=== PATIENT | male | born 1955 | race Caucasian/White ===

== ENCOUNTER 2017-12-07 05:54 | Day surgery (SDC) | payer BC ==
[2017-12-07] MEDS ORDERED: Midazolam 1 MG/ML 2 ML SDV IV ONE ×7 (05:55→07:41)
[2017-12-07] MEDS ORDERED: fentaNYL 100 MCG/2 ML SDV IV ONE ×3 (05:55→07:34)
[2017-12-07] MEDS ORDERED: Sodium Chloride 0.9% 10 ML Syringe FLUSH PRN (06:00)
[2017-12-07] MEDS ORDERED: Dextrose 5%-0.45% NaCl 1,000 ML IV SCH (06:00)
[2017-12-07] MEDS ORDERED: fentaNYL 100 MCG/2 ML SDV ONE (06:18)
[2017-12-07] MEDS ORDERED: Midazolam 1 MG/ML 2 ML SDV ONE (06:18)
[2017-12-07 10:44] VITALS: BP 106/72
--- NOTE | 2017-12-07 14:06 | OR ---
DATE: 12/07/2017 PROCEDURE: Total colonoscopy. INSTRUMENT USED: CF-H180AL Olympus video colonoscope. Olympus distal disposable attachment. PREMEDICATIONS: Fentanyl 100 mcg intravenous, Versed 4 mg intravenous. Nasal O2 cannula. INDICATION: The patient with rectal bleeding. Colonoscopic examination is done for detection of any polypoid lesions and removal, endoscopic hemostasis therapy if needed. DESCRIPTION OF PROCEDURE: Initial rectal exam showed external hemorrhoidal tags. Rigid anoscopy showed small internal hemorrhoids without bleeding from them. The colonoscope was passed with ease up to the ileocecal area, photographs were taken of the normal-appearing cecum identified by landmarks of appendiceal orifice and double-bulged ileocecal folds. No bleeding was noted from any of the visualized areas at the commencement of the examination. No stricture. No vascular ectasia. No large isolated ulcerations seen. No evidence of diffuse inflammatory bowel disease in the form of friability, contact bleeding, or ulcerations. No polyp or tumor mass identified. Probing the proximal sides of folds and flexures, using adequate distention and clearing of the stool material, withdrawal of the scope was made, cecum to rectum time over 6 minutes. No bleeding was noted from any of the visualized areas at the completion of examination. IMPRESSION: External hemorrhoids. The patient tolerated the procedure well. [facility] /[id number]
== END 2017-12-07 09:30 | disposition home or self-care (01) ==
LOC: DL.ENDO 05:54
PROVIDERS: ATTEND Internal Medicine Gastroenterology
DX: K62.5 Hemorrhage of anus and rectum (principal); K64.4 Residual hemorrhoidal skin tags; K64.8 Other hemorrhoids; E66.09 Other obesity due to excess calories; E78.00 Pure hypercholesterolemia, unspecified; K21.9 Gastro-esophageal reflux disease without esophagitis
CPT/HCPCS: 45378; J7042; J2250; J3010

== ENCOUNTER 2025-04-03 05:12 | Day surgery (SDC) | payer MEDICARE, BC ==
[2025-04-03] MEDS ORDERED: Propofol 200 MG/20 ML SDV IV ONE (05:13)
[2025-04-03] MEDS ORDERED: Lactated Ringers 1,000 ML IV ONE (05:13)
[2025-04-03] MEDS ORDERED: Propofol 200 MG/20 ML SDV ONE (05:45)
[2025-04-03] MEDS: Lactated Ringers 1,000 ML IV SCH (06:00)
[2025-04-03 08:09] VITALS: BP 131/71; PULSE 60
== END 2025-04-03 07:59 | disposition home or self-care (01) ==
LOC: DL.ENDO 05:12
PROVIDERS: ATTEND Internal Medicine Gastroenterology
DX: D12.5 Benign neoplasm of sigmoid colon (principal); K64.4 Residual hemorrhoidal skin tags; K21.9 Gastro-esophageal reflux disease without esophagitis; E05.90 Thyrotoxicosis, unspecified without thyrotoxic crisis or storm; I10 Essential (primary) hypertension; Z79.899 Other long term (current) drug therapy
CPT/HCPCS: 45385; J2704; J7120; 88305